=== PATIENT | male | born 1945 | race Caucasian/White ===

== ENCOUNTER 2021-05-30 10:30 | Emergency (ER) | payer MEDICARE, SELFPAY ==
[2021-05-30] VITALS (19 sets, daily range): BP systolic 177–204; BP diastolic 84–120; PULSE 56–73; RESP 9–26; TEMP 36.2; O2SAT 97–98; BMI 30.9
--- NOTE | 2021-05-30 10:58 | ED_ITS ---
HPI - General Adult General Chief complaint: Abdominal Pain Stated complaint: sharp pain rt lower abdomian, cold sweats and vomi Time Seen by Provider: 05/30/21 10:58 Source: patient and family Mode of arrival: Ambulatory Limitations: no limitations History of Present Illness HPI narrative: 76-year-old gentleman with history of hypertension, hyperlipidemia, coronary artery disease post CABG with paroxysmal atrial fibrillation currently on aspirin and post ablation comes in with abdominal pain in the right lower/mid quadrant that has been worse since this morning. He has current diagnosis of presumed epididymitis for which he is currently on Cipro. Describes no vomiting, diarrhea, headaches, chest pain, palpitations, dyspnea, orthopnea, rashes. Related Data Home Medications Medication Instructions Recorded Confirmed aspirin 81 mg tablet,delayed 81 mg PO DAILY 03/18/19 05/30/21 release (Adult Low Dose Aspirin) cholecalciferol (vitamin D3) 50 2,000 unit PO DAILY 03/18/19 05/30/21 mcg (2,000 unit) capsule clonidine HCl 0.1 mg tablet 0.1 mg PO BID 03/18/19 05/30/21 furosemide 40 mg tablet 40 mg PO QAM 03/18/19 05/30/21 isosorbide mononitrate 60 mg 60 mg PO DAILY 03/18/19 05/30/21 tablet,extended release 24 hr paricalcitol 1 mcg capsule 1 mcg PO 3XW 03/18/19 05/30/21 rosuvastatin 10 mg tablet 10 mg PO BEDTIME 03/18/19 05/30/21 ciprofloxacin HCl 500 mg tablet 500 mg PO BID 05/30/21 05/30/21 coenzyme Q10 200 mg capsule (Co 200 mg PO DAILY 05/30/21 05/30/21 Q-10) epinephrine 0.3 mg/0.3 mL 0.3 mg IM QDAY PRN 05/30/21 05/30/21 injection, auto-injector hydralazine 50 mg tablet 150 mg PO BID 05/30/21 05/30/21 Previous Rx's Medication Instructions Recorded metoprolol tartrate 25 mg tablet 25 mg PO BID #180 tab 01/08/17 Allergies Allergy/AdvReac Type Severity Reaction Status Date / Time atorvastatin [From LIPITOR] Allergy Mild FLU-LIKE Verified 05/30/21 10:57 SYMPTOMS NITRATE Allergy Severe ANAPHYLAXIS Uncoded 03/18/19 09:24 SHELLFISH Allergy Severe ANAPHYLAXIS Uncoded 03/18/19 09:24 Review of Systems Review of Systems Narrative: Remainder of complete review of systems is otherwise unremarkable except for chiqui t included in the HPI. 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 Able to give a complete and coherent history. Well-nourished well-developed HEENT: Moist mucous membranes, normal sclera with reactive pupils, Neck: No JVD, supple Respiratory: Lungs are clear to auscultation, no wheezing no rales no rhonchi. Full and symmetrical air movement Cardiac: Regular rate and rhythm no murmurs no bruits Abdomen: Soft, mild tenderness mid right abdomen without specific flank pain or specific right lower quadrant tenderness. Good bowel tones, Skin: Warm and dry, no rashes Neurologic: Grossly neurologically intact with no obvious asymmetries or abnormalities Extremities: No trauma, well perfused Psych: Cooperative, appropriate insight and affect Initial Vital Signs Initial Vital Signs: Vital Signs Temperature 97.1 F L 05/30/21 10:35 Pulse Rate 62 05/30/21 10:35 Respiratory Rate 18 05/30/21 10:35 Blood Pressure 182/104 H 05/30/21 10:35 Pulse Oximetry 97 05/30/21 10:35 Course Orders Ordered: ED Orders 05/30/21 10:50 Complete Blood Count AUTO DIFF Stat Comprehensive Metabolic Panel Stat Lipase Stat Partial Thromboplastin Time Stat Prothrombin Time INR Stat 05/30/21 10:58 EKG-12 Lead Stat 05/30/21 12:14 CT kidney ureter bladder (KUB) Stat Discontinued Medications Bisacodyl (Bisacodyl 10 Mg Supp) 10 mg KS NOW ONE Stop: 05/30/21 15:17 Clonidine HCl (Clonidine 0.1 Mg Tablet) 0.1 mg PO NOW ONE Stop: 05/30/21 15:17 Hydralazine HCl (Hydralazine 25 Mg Tablet) 150 mg PO NOW ONE Stop: 05/30/21 15:17 Vital Signs Vital signs: Vital Signs - 8 hr 05/30/21 10:35 05/30/21 11:04 05/30/21 11:15 Temperature 97.1 F L Pulse Rate 62 63 73 Respiratory Rate 18 17 23 Blood Pressure 182/104 H Pulse Oximetry 97 97 05/30/21 11:16 05/30/21 11:30 05/30/21 11:45 Temperature Pulse Rate 56 L 56 L 61 Respiratory Rate 18 21 Blood Pressure 184/93 H 182/84 H 177/109 H Pulse Oximetry 97 98 05/30/21 12:00 05/30/21 12:22 05/30/21 12:30 Temperature Pulse Rate 64 68 63 Respiratory Rate 19 Blood Pressure 182/104 H Pulse Oximetry 97 98 98 05/30/21 12:45 05/30/21 13:00 05/30/21 13:15 Temperature Pulse Rate 59 L 63 61 Respiratory Rate 26 H 9 L 13 Blood Pressure Pulse Oximetry 97 97 97 05/30/21 13:45 05/30/21 14:00 05/30/21 14:15 Temperature Pulse Rate 64 63 64 Respiratory Rate 17 23 Blood Pressure 204/120 H Pulse Oximetry 98 98 98 05/30/21 14:16 05/30/21 14:30 05/30/21 14:45 Temperature Pulse Rate 64 59 L 60 Respiratory Rate 13 Blood Pressure 204/120 H 185/117 H 195/100 H Pulse Oximetry 98 98 98 05/30/21 15:00 Temperature Pulse Rate 60 Respiratory Rate 13 Blood Pressure 186/117 H Pulse Oximetry 98 Medical Decision Making Lab Data Result diagrams: 05/30/21 10:50 05/30/21 10:50 Labs: Lab Results 05/30/21 05/30/21 05/30/21 Range/Units 10:50 10:50 10:50 WBC 7.4 (4.5-11.0) X10^3/uL RBC 5.00 (4.5-5.9) X10^6/uL Hgb 13.5 (13.5-17.5) g/dL Hct 41.4 (41-53) % MCV 82.8 (80-100) fL MCH 26.9 (26-34) PG MCHC 32.5 (30-36) % RDW 17.5 H (11.6-14.8) % Plt Count 172 (150-400) X10^3/uL Neut % (Auto) 75.9 H (50-75) % Lymph % (Auto) 11.0 L (25-40) % [place] % (Auto) 9.2 (3-14) % Eos % (Auto) 3.0 (2-4) % Baso % (Auto) 0.9 (0-2) % Neut # (Auto) 5600 (3333-1175) /uL Lymph # (Auto) 800 L (1203-8323) /uL [place] # (Auto) 700 (0-900) /uL Eos # (Auto) 200 (0-450) /uL Baso # (Auto) 100 (0-100) /uL PT 12.8 H (10.1-12.7) SECONDS INR 1.2 (0.9-1.3) APTT 32 (26.4-36.2) SECONDS Sodium 142 (137-145) mmol/L Potassium 3.4 (3.4-5.1) mmol/L Chloride 105 (98-107) mmol/L Carbon Dioxide 28 (22-32) mmol/L BUN 34 H (9-20) mg/dL Creatinine 2.18 H (0.66-1.25) mg/dL Estimated GFR 29.6 L (>60) mL/min BUN/Creatinine Ratio 15.6 (6-22) Glucose 97 (80-110) mg/dL Calcium 9.3 (8.4-10.2) mg/dL Total Bilirubin 0.6 (0.2-1.3) mg/dL AST 31 (17-59) IU/L ALT 17 (<50) IU/L Alkaline Phosphatase 70 (38-126) U/L Total Protein 7.6 (6.3-8.2) g/dL Albumin 4.1 (3.5-5.0) g/dL Globulin 3.5 (1.7-4.1) g/dL Albumin/Globulin Ratio 1.2 (1.0-2.8) Lipase 113 (23-300) U/L Urine Dip Bedside Urine Glucose Negative Bedside Urine Bilirubin - Negative Bedside Urine Ketone - Negative Urine Specific [place] 1.015 Bedside Urine Occult Blood - Negative Bedside Urine pH 6.0 Bedside Urine Protein - Negative Bedside Urine Urobilinogen - Negative Bedside Urine Nitrite - Negative Bedside Urine Leukocytes - Negative Esterase Point of care testing: Urine Dip Bedside Urine Glucose Negative Bedside Urine Bilirubin - Negative Bedside Urine Ketone - Negative Urine Specific [place] 1.015 Bedside Urine Occult Blood - Negative Bedside Urine pH 6.0 Bedside Urine Protein - Negative Bedside Urine Urobilinogen - Negative Bedside Urine Nitrite - Negative Bedside Urine Leukocytes - Negative Esterase Imaging Data CT scan - abdomen/pelvis: My Impression: FINDINGS:? Image quality:? Excellent.? ? Lung bases:? Unremarkable.? ? Heart:? Heart is enlarged.? No effusion. ? URINARY: Right Kidney: ? No stones or hydronephrosis.? Renal atrophy is present.? Exophytic simple cysts are present. Right Ureter:? No hydroureter.? ? Left Kidney: ? No stones or hydronephrosis.? Renal atrophy is present.? Simple exophytic renal cysts are present. Left Ureter:? No hydroureter.? ? Bladder:? Normal wall thickness. No stones. ? ? ? ABDOMEN: Liver:? Mild hepatic steatosis is present. Gallbladder:? Luminal stone is noted without wall thickening.? ? Biliary ducts:? Unremarkable.? ? Pancreas:? Unremarkable.? ? Spleen:? Unremarkable.? ? Adrenal Glands:? Unremarkable.? ? ? Stomach and Bowel:? Stomach, small bowel loops, and colon are unremarkable.? Colonic diverticula are present without associated inflammatory change.? Prominent stool is present within the rectum as well as sigmoid colon.? Appendix is unremarkable. Peritoneum:? No abnormal intraperitoneal fluid.? No free air.? ? Ventral Wall: ? No hernia.? Abdominal Nodes:? No enlarged retroperitoneal or mesenteric lymph nodes.? Vessels:? Aorta and inferior vena cava are normal in size.? ? PELVIS: Pelvic Organs:? Unremarkable. Pelvic Nodes: Unremarkable. Miscellaneous:? Fat containing bilateral inguinal hernias, left greater than right are noted. ? Bones:? Unremarkable. ? IMPRESSION:? ? 1. No calculi are identified within the kidneys, ureter or bladder. ? 2. Diverticulosis. ? 3. Prominent stool within the rectum and distal sigmoid colon.? No obstruction.? ? ? Dictated by: Saima Rai M.D. on 05/30/2021 at 12:28? ?? ECG Data Interpretation: Atrial fibrillation a rate of 55 No acute ischemic MDM Narrative Medical decision making narrative: 76-year-old gentleman presents with mid right abdominal pain abrupt onset this morning. Currently on Cipro for presumed epididymitis. Has a history of chronic kidney disease and blood pressure that is managed by his pairer odds that includes hydralazine 150 mg twice a day clonidine 0.1 mg twice a day furosemide and b.i.d. metoprolol. He took all of his medications this morning that blood pressures in the emergency department have continued to be significantly elevated with no end-stage symptomatology (chest pain, shortness of breath, palpitations, headache, stroke-like symptoms). He notes that the abdominal pain is such that with reassurance he could easily ignore it. Workup today suggests no acute infection, stable chronic kidney issues, no evidence of stroke or heart attack and CT scan does not show any obvious explanation for the mid right abdominal pain. He does have a moderate amount of stool on the left side but no obstructions, masses, kidney stones, urinary tract infection or other acute surgical abnormality. He is discharged home with reassurance at this time. He is given his evening dose of hydralazine and clonidine due to his asymptomatic blood pressure at time of discharge. Will have him take his usual metoprolol and isosorbide this evening. He is also given a duplex suppository to use once he gets home and has every intention of adding quite a bit of prunes to try to encourage more regular bowel movements. He is safe for home discharge Discharge Plan Departure Patient Disposition: Home Clinical Impression: Abdominal pain, Stage 4 chronic kidney disease, Hypertension Instructions: DI for Abdominal Pain-Adult Activity Restrictions/Additional Instructions: Thank you for coming in today I did not find a life-threatening explanation for the pain in your right side today. Specifically there is no sign of infection, appendicitis kidney infection kidney obstruction. There are no masses or tumors, your bladder is not overly distended and you do not have any type of bowel obstruction. You do have quite a bit of stool on the left side of your colon and I his sent you home with a suppository to use this evening to see if having a bowel movement helps alleviate the abdominal pain you are experiencing. Your blood pressure was significantly high in the emergency department without any signs of stroke or heart attack. I gave you your usual dose of evening clonidine and hydralazine a just prior to discharge from the emergency department. You do need to take all of your other nighttime medications. If you have worsening signs or symptoms please feel free to return to the ER I hope you feel better Prescriptions: No Action metoprolol tartrate 25 MG tablet 25 mg PO BID Qty: 180 1RF ciprofloxacin HCl 500 mg tablet 500 mg PO BID 0RF Label Comments: TAKE ONE(1) TABLET BY MOUTH TWO(2) TIMES DAILY FOR SEVEN(7) DAYS FOR INFECTION UNTIL ALL ARE TAKEN Rx Instructions: started end date 06/01 =(7 days) hydralazine 50 mg tablet 150 mg PO BID 0RF Label Comments: TAKE THREE(3) TABLETS BY MOUTH TWO(2) TIMES DAILY TO GIVE A DOSE OF 150MG TWICE DAILY DOSE CHANGE 02/24/21 NOTE THESE ARE 50MG TABS coenzyme Q10 [Co Q-10] 200 mg Capsule 200 mg PO DAILY 0RF epinephrine 0.3 MG/0.3 ML auto-injector 0.3 mg IM QDAY PRN (Reason: anaphalaxis) 0RF clonidine HCl 0.1 mg tablet 0.1 mg PO BID 0RF furosemide 40 mg tablet 40 mg PO QAM 0RF rosuvastatin 10 mg tablet 10 mg PO BEDTIME 0RF isosorbide mononitrate 60 mg tablet extended release 24 hr 60 mg PO DAILY 0RF paricalcitol 1 mcg capsule 1 mcg PO 3XW 0RF Rx Instructions: mon/wed/fri aspirin [Adult Low Dose Aspirin] 81 mg tablet,delayed release (DR/EC) 81 mg PO DAILY 0RF cholecalciferol (vitamin D3) 2,000 unit capsule 2,000 unit PO DAILY 0RF Referrals: Brian Moore MD [Primary Care Provider] -
[2021-05-30 11:11] LABS: Add Manual Diff / Slide Review NO; Basophils Absolute Auto 100 /uL (0-100); Basophils Percent Auto 0.9 % (0-2); Eosinophils Absolute Auto 200 /uL (0-450); Hematocrit 41.4 % (41-53); Hemoglobin 13.5 g/dL (13.5-17.5); Lymphocytes Absolute Auto 800 /uL (1100-4500); Mean Corpuscular HGB Conc 32.5 % (30-36); Mean Corpuscular Hemoglobin 26.9 PG (26-34); Mean Corpuscular Volume 82.8 fL (80-100); Monocytes Absolute Auto 700 /uL (0-900); Monocytes Percent Auto 9.2 % (3-14); Neutrophils Absolute Auto 5600 /uL (1500-7000); Neutrophils Percent Auto 75.9 % (50-75); Platelet Count 172 X10^3/uL (150-400); Red Cell Distribution Width 17.5 % (11.6-14.8); White Blood Cell Count 7.4 X10^3/uL (4.5-11.0)
[2021-05-30 11:13] LABS: INR 1.2 (0.9-1.3); Prothrombin Time 12.8 SECONDS (10.1-12.7)
[2021-05-30 11:16] LABS: PTT Partial Thromboplastin Tim 32 SECONDS (26.4-36.2)
[2021-05-30 11:18] LABS: Alanine Aminotransferase 17 IU/L (<50); Albumin 4.1 g/dL (3.5-5.0); Albumin Globulin Ratio 1.2 (1.0-2.8); Alkaline Phosphatase 70 U/L (38-126); Aspartate Aminotransferase 31 IU/L (17-59); BUN Creatinine Ratio 15.6 (6-22); Bilirubin Total 0.6 mg/dL (0.2-1.3); Blood Urea Nitrogen 34 mg/dL (9-20); Calcium 9.3 mg/dL (8.4-10.2); Carbon Dioxide 28 mmol/L (22-32); Chloride 105 mmol/L (98-107); Estimated Glomerular Filt Rate 29.6 mL/min (>60); Globulin 3.5 g/dL (1.7-4.1); Glucose 97 mg/dL (80-110); HEMOLYSIS < 15 (0-50); Lipase 113 U/L (23-300); Potassium 3.4 mmol/L (3.4-5.1); Sodium 142 mmol/L (137-145); Total Protein 7.6 g/dL (6.3-8.2)
--- NOTE | 2021-05-30 12:14 | DI.CT.S_ITS ---
PROCEDURE: CT KIDNEY URETER BLADDER (KUB) INDICATIONS: Right flank pain TECHNIQUE: Axial sections were acquired from the lung bases to the pubic symphysis. Coronal and sagittal reformats were performed. For radiation dose reduction, the following was used: automated exposure control, adjustment of mA and/or kV according to patient size. COMPARISON: None. FINDINGS: Image quality: Excellent. Lung bases: Unremarkable. Heart: Heart is enlarged. No effusion. URINARY: Right Kidney: No stones or hydronephrosis. Renal atrophy is present. Exophytic simple cysts are present. Right Ureter: No hydroureter. Left Kidney: No stones or hydronephrosis. Renal atrophy is present. Simple exophytic renal cysts are present. Left Ureter: No hydroureter. Bladder: Normal wall thickness. No stones. ABDOMEN: Liver: Mild hepatic steatosis is present. Gallbladder: Luminal stone is noted without wall thickening. Biliary ducts: Unremarkable. Pancreas: Unremarkable. Spleen: Unremarkable. Adrenal Glands: Unremarkable. Stomach and Bowel: Stomach, small bowel loops, and colon are unremarkable. Colonic diverticula are present without associated inflammatory change. Prominent stool is present within the rectum as well as sigmoid colon. Appendix is unremarkable. Peritoneum: No abnormal intraperitoneal fluid. No free air. Ventral Wall: No hernia. Abdominal Nodes: No enlarged retroperitoneal or mesenteric lymph nodes. Vessels: Aorta and inferior vena cava are normal in size. PELVIS: Pelvic Organs: Unremarkable. Pelvic Nodes: Unremarkable. Miscellaneous: Fat containing bilateral inguinal hernias, left greater than right are noted. Bones: Unremarkable. IMPRESSION: 1. No calculi are identified within the kidneys, ureter or bladder. 2. Diverticulosis. 3. Prominent stool within the rectum and distal sigmoid colon. No obstruction. Dictated by: Saima Rai M.D. on 05/30/2021 at 12:28 Approved by: Saima Rai M.D. on 05/30/2021 at 12:35
[2021-05-30] MEDS: BISACODYL 10 MG SUPP PR (15:23)
[2021-05-30] MEDS: cloNIDine 0.1 MG TABLET PO (15:23)
[2021-05-30] MEDS: HYDRALAZINE 25 MG TABLET 150 MG PO (15:28)
== END 2021-05-30 15:34 | disposition home or self-care (01) ==
PROVIDERS: Emergency Provider Emergency Medicine; Family Provider Family Medicine; PCP Family Medicine
DX: R10.31 Right lower quadrant pain (principal); I48.91 Unspecified atrial fibrillation; I12.9 Hypertensive chronic kidney disease with stage 1 through stage 4 chronic kidney disease, or unspecified chronic kidney disease; N18.4 Chronic kidney disease, stage 4 (severe); Z87.891 Personal history of nicotine dependence
CPT/HCPCS: 36415; 74176; 80053; 81003; 83690; 85025; 85610; 85730; 93005; 93010; 99284

== ENCOUNTER 2021-12-19 10:17 | Day surgery (SDC) | payer MEDICARE, SELFPAY ==
--- NOTE | 2021-12-19 | PATH_ITS ---
[facility] Accession Number: [id number] . 01 Material submitted: . colon - RIGHT COLON POLYPS . 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 MRV 12/22/2021 0828 Local . 01 Electronically signed: . Arielle Nair MD, Pathologist NPI- [id number] . 01 Gross description: . RIGHT COLON POLYPS: Received in formalin are 3 fragment(s) of paredes, soft tissue measuring 0.2 x 0.2 x 0.2 cm to 0.8 x 0.3 x 0.3 cm submitted entirely in 1 cassette(s) /MARCELINO 12/20/2021 1905 Local . 01 Pathologist provided ICD-10: D12.6 . 01 CPT . 484228 Specimen Comment: A courtesy copy of this report has been sent to [phone] Performed at: 01 [facility] [address] [place] [address] [address], [place], [place] [id number] MD Jairon Wise MD Phone: [phone]
[2021-12-19 10:57] VITALS: BP 163/104; PULSE 67; RESP 16; TEMP 36.1; O2SAT 97; BMI 29.3
--- NOTE | 2021-12-19 11:09 | PM.HP.1 ---
History of Present Illness History of Present Illness Date Patient Seen: 12/19/21 Time Patient Seen: 11:09 Chief complaint: SDC Narrative: I reviewed the recent clinic note from Elizabeth Villalobos. Patient has been experiencing intermittent abdominal pains and troubles with constipation. Better lately with fiber supplementation approach. CT imaging has suggested fecal loading in the rectum and sigmoid. 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 Mixed hyperlipidemia (09/23/15) Obstructive sleep apnea, adult Stage 4 chronic kidney disease (02/12/15) Surgical History History of coronary artery bypass surgery (09/23/15) Family & Social History Tobacco & Substance use: Smoking Status Former smoker alcohol intake frequency 0-2 drinks per day Substance Use Type does not use Meds Home Medications and Allergies Home Medications Medication Instructions Recorded Confirmed Type metoprolol tartrate 25 mg tablet 25 mg PO BID #180 tabs 01/08/17 05/30/21 Rx aspirin 81 mg tablet,delayed 81 mg PO DAILY 03/18/19 05/30/21 History release (Adult Low Dose Aspirin) cholecalciferol (vitamin D3) 50 2,000 unit PO DAILY 03/18/19 05/30/21 History mcg (2,000 unit) capsule clonidine HCl 0.1 mg tablet 0.1 mg PO BID 03/18/19 05/30/21 History furosemide 40 mg tablet 40 mg PO QAM 03/18/19 05/30/21 History isosorbide mononitrate 60 mg 60 mg PO DAILY 03/18/19 05/30/21 History tablet,extended release 24 hr paricalcitol 1 mcg capsule 1 mcg PO 3XW 03/18/19 05/30/21 History rosuvastatin 10 mg tablet 10 mg PO BEDTIME 03/18/19 05/30/21 History ciprofloxacin HCl 500 mg tablet 500 mg PO BID 05/30/21 05/30/21 History coenzyme Q10 200 mg capsule (Co 200 mg PO DAILY 05/30/21 05/30/21 History Q-10) epinephrine 0.3 mg/0.3 mL 0.3 mg IM QDAY PRN anaphalaxis 05/30/21 05/30/21 History injection, auto-injector hydralazine 50 mg tablet 150 mg PO BID 05/30/21 05/30/21 History clonidine HCl 0.1 mg tablet mg 12/19/21 History hydralazine 50 mg tablet mg 12/19/21 History rosuvastatin 20 mg tablet tab 12/19/21 History Allergies Allergy/AdvReac Type Severity Reaction Status Date / Time atorvastatin [From LIPITOR] Allergy Mild FLU-LIKE Verified 12/19/21 10:53 SYMPTOMS NITRATE Allergy Severe ANAPHYLAXIS Uncoded 12/19/21 10:53 SHELLFISH Allergy Severe ANAPHYLAXIS Uncoded 12/19/21 10:53 Review of Systems Review of Systems ROS: Yes All systems reviewed with the patient and are negative except as otherwise documented Exam Const General: cooperative HENMT Head: normal to inspection Eyes General: appearance normal, both eyes and all related structures Neck Neck: normal visual inspection Chest Chest: normal inspection of the chest Resp Effort & Inspection: normal respiratory effort Cardio Rate: regular rate GI Inspection: normal to inspection Skin General: no rashes or lesions noted Neuro General: patient alert and patient awake Extrem General: normal to inspection and no pedal edema Psych Appearance: grossly normal Assessment & Plan Assessment & Plan narrative: 76-year-old male with intermittent abdominal pain found to have fecal loading at CT imaging. Colonoscopic interrogation is pursued today. Time Spent With Patient Critical Care time: I spent a total of [] minutes of critical care time on this patient's care today; this time is exclusive of procedural time.
--- NOTE | 2021-12-19 11:11 | PM.PREOP ---
Pre-operative Note COVID-19 COVID-19 status: Negative Result date/Date tested (Pos, Neg/Pending): 12/19/21 Criteria for continued procedure: Possibility delay results in more complex future surgery or treatment Interval Note History & Physical reviewed/Exam performed by Physician: Yes Changes to H&P: No ASA Class (for procedural sedation): III
[2021-12-19 11:16] VITALS: BP 154/101
[2021-12-19 11:22] LABS: COVID19 -Nasal RAPID Negative (Negative)
[2021-12-19 11:27] VITALS: BMI 29.3
[2021-12-19] MEDS: SODIUM CHLORIDE 0.9% 1,000 ML 84 ML IV (11:33)
--- NOTE | 2021-12-19 12:16 | P.OP.COLON_ITS ---
Operative Date/Time/Diagnoses Date of procedure: 12/19/21 Time of procedure: 12:16 Pre-op diagnosis: Abdominal pain constipation Post-op diagnosis: same Procedure & Clinicians Study performed: Colonoscopy with hot snare polypectomy and cold forceps polypectomy Same procedure as scheduled: Yes Indications: Abdominal pain constipation Surgeon: Benedict Ruiz Procedure Notes SCOAP/Timeout: Done Procedure in detail: After the risks and benefits were explained, written and verbal informed consent was obtained. The patient was brought into the procedure room and placed into the left lateral decubitus position. Please see nurse heavy repairer notes for sedation details. Digital rectal examination was accomplished. The scope was introduced into the patient and advanced under direct visualization to the cecum as identified by the appendiceal orifice and ileocecal valve. The scope was slowly withdrawn to carefully examine the mucosa for any defects or lesions. Comprehensive imaging was accomplished throughout the rectum including the dentate line. The colon was decompressed, the scope was then removed from the patient who tolerated the procedure well. Bowel prep adequate Adult colonoscope Scope withdrawal time: 12 minutes Sedation minutes: 20 Complications: none Impression: The patient had extensive diverticulosis starting in the sigmoid colon extending all the way into ascending colon. No mass lesions were appreciated no evidence of inflammation throughout the colon. Moderate grade 2 internal hemorrhoids were noted. In the cecum there was a 5-6 mm sessile polyp removed with hot snare. In the ascending colon there were 2 diminutive polyps removed with cold forceps. All of these were submitted together as ?right colon polyps?. No additional significant pathology was appreciated throughout. Endoscopic diagnosis 1. Diverticulosis 2. Colon polyps 3. Grade 2 hemorrhoids Post-procedure Plan for aftercare: 1. Await histopathology 2. Consider repeat colonoscopy 3 years. 3. Fiber based bowel regimen for soft regular evacuations. Disposition: PACU
[2021-12-19 12:18] VITALS: BP 131/88; PULSE 75; RESP 25; TEMP 36.7; O2SAT 96
[2021-12-19 12:23] VITALS: BP 146/102; PULSE 70; RESP 18; TEMP 36.4; O2SAT 94
[2021-12-19 12:28] VITALS: BP 166/116; PULSE 68; RESP 17; TEMP 36.1; O2SAT 95
[2021-12-19 12:34] VITALS: BP 159/107; PULSE 71; RESP 18; TEMP 36.1; O2SAT 95
== END 2021-12-19 13:01 | disposition home or self-care (01) ==
PROVIDERS: Family Provider Family Medicine; PCP Family Medicine; Referring Provider Internal Medicine Gastroenterology; Visit Provider Internal Medicine Gastroenterology
PROC: 0DJD8ZZ Inspection of Lower Intestinal Tract, Via Natural or Artificial Opening Endoscopic (ICD-10-PCS; CPT 45378; principal; 2021-12-19 11:30)
DX: R10.9 Unspecified abdominal pain (principal); K59.00 Constipation, unspecified; K57.30 Diverticulosis of large intestine without perforation or abscess without bleeding; K64.1 Second degree hemorrhoids; D12.6 Benign neoplasm of colon, unspecified
CPT/HCPCS: 45385; 45380; 87635; J2704

== ENCOUNTER → 2022-04-27 14:27 | Outpatient (CLI) | payer MEDICARE, SELFPAY ==
[2022-04-27 15:04] LABS: Add Manual Diff / Slide Review NO; Basophils Absolute Auto 100 /uL (0-100); Basophils Percent Auto 1.2 % (0-2); Eosinophils Absolute Auto 400 /uL (0-450); Eosinophils Percent Auto 5.4 % (2-4); Hematocrit 40.1 % (41-53); Hemoglobin 12.9 g/dL (13.5-17.5); Lymphocytes Absolute Auto 1000 /uL (1100-4500); Lymphocytes Percent Auto 14.9 % (25-40); Mean Corpuscular HGB Conc 32.3 % (30-36); Mean Corpuscular Hemoglobin 27.7 PG (26-34); Mean Corpuscular Volume 85.8 fL (80-100); Monocytes Absolute Auto 800 /uL (0-900); Monocytes Percent Auto 11.7 % (3-14); Neutrophils Absolute Auto 4400 /uL (1500-7000); Neutrophils Percent Auto 66.8 % (50-75); Platelet Count 193 X10^3/uL (150-400); Red Blood Cell Count 4.67 X10^6/uL (4.5-5.9); Red Cell Distribution Width 16.3 % (11.6-14.8); White Blood Cell Count 6.6 X10^3/uL (4.5-11.0)
[2022-04-27 15:26] LABS: BUN Creatinine Ratio 14.5 (6-22); Blood Urea Nitrogen 37 mg/dL (9-20); Carbon Dioxide 27 mmol/L (22-32); Chloride 105 mmol/L (98-107); Estimated Glomerular Filt Rate 25 mL/min (>60); Glucose 106 mg/dL (80-110); HEMOLYSIS < 15 (0-50); Potassium 3.7 mmol/L (3.4-5.1); Sodium 142 mmol/L (137-145)
== END ==
PROVIDERS: Family Provider Family Medicine; PCP Family Medicine; Referring Provider Orthopaedic Surgery; Visit Provider Orthopaedic Surgery
DX: Z01.818 Encounter for other preprocedural examination (principal); M25.562 Pain in left knee; Z01.812 Encounter for preprocedural laboratory examination
CPT/HCPCS: 36415; 80048; 85025; 93005

== ENCOUNTER 2022-05-18 13:02 | Observation (INO) | payer MEDICARE, SELFPAY ==
[2022-05-09 07:52] VITALS: BMI 30.6
[2022-05-17] VITALS (14 sets, daily range): BP systolic 138–182; BP diastolic 81–111; PULSE 58–85; RESP 14–20; TEMP 35.7–36.6; O2SAT 88–98; BMI 30.6; BMI 32.3
[2022-05-17] MEDS: LACTATED RINGERS 1,000 ML 42 ML IV ×2 (09:01→11:48)
--- NOTE | 2022-05-17 09:47 | PM.PREOP ---
Pre-operative Note COVID-19 COVID-19 status: Negative Result date/Date tested (Pos, Neg/Pending): 05/15/22 Interval Note History & Physical reviewed/Exam performed by Physician: Yes Changes to H&P: No
--- NOTE | 2022-05-17 10:01 | DI.RAD.S_ITS ---
PROCEDURE: XR KNEE RT 1TO2V INDICATIONS: post op total knee TECHNIQUE: 2 view(s) of the knee acquired. COMPARISON: [facility], CR, XR KNEE 4+ VIEWS RIGHT, 02/20/2022, 15:03. FINDINGS: Bones: Patient is status post knee joint arthroplasty. Hardware components are in expected positions. Visualized bony structures are intact. Soft tissues: Overlying postoperative changes are noted. IMPRESSION: Expected appearance of the right knee arthroplasty. Dictated by: wKame Ogden M.D. on 05/17/2022 at 13:54 Approved by: Kwame Ogden M.D. on 05/17/2022 at 13:54
[2022-05-17] MEDS: CELECOXIB 200 MG CAPSULE PO (10:08)
[2022-05-17] MEDS: PREGABALIN 75 MG CAPSULE PO (10:08)
[2022-05-17] MEDS: ACETAMINOPHEN 325 MG TABLET 975 MG PO (10:08)
[2022-05-17] MEDS: CEFAZOLIN 2 GM/100 ML PREMIX 100 ML IV ×2 (10:30→19:02)
[2022-05-17] MEDS: TRANEXAMIC ACID 1,000 MG VIAL 2000 MG INJ ×2 (10:45→12:00)
--- NOTE | 2022-05-17 11:16 | SUR.OPER ---
Supine on padded OR bed. Pillow under head, arms secured on padded armboards <90 degree abduction. Safety belt across torso. Non-operative leg secured with tape over blanket over lower leg. Operative leg secured in DeMayo/Vimal/Nathe positioner. Foam padded brace at thigh of operative leg.
[2022-05-17] MEDS: BUPIVACAINE 0.25% (PF) 60 ML, EPINEPHrine 0.3 MG INJ (11:45)
[2022-05-17] MEDS: BUPIVACAINE LIPOSOME 266 MG/20 ML VIAL INJ (11:46)
[2022-05-17] MEDS: MORPHINE 4 MG/ML INJ INJ (11:47)
--- NOTE | 2022-05-17 12:24 | PM.OP.1 ---
Operative Date/Time/Diagnoses Date of procedure: 05/17/22 Time of procedure: 12:24 Pre-op diagnosis: Right knee osteoarthritis Post-op diagnosis: same Procedure & Clinicians Procedure: Right total knee replacement Same procedure as scheduled: Yes Indications: The patient has had progressively worsening right knee pain with radiographic changes consistent with arthritis. Non-operative management has failed and the patient has requested total knee replacement. The risks, benefits and alternatives to surgery were discussed with the patient prior to proceeding. Risks discussed included, but were not limited to, failure to relieve pain, stiffness, infection, nerve damage, deep venous thrombosis, pulmonary embolism, stroke, coma, heart attack, permanent paralysis and , as well as the potential need for eventual revision of the prosthetic. Surgeon: Alhaji Farfan [employer] Whe[employer] Driver: Amelie Frost Click Yes if Unassisted: No Anesthesia Type: General, Spinal and Local Operative Notes Findings: Severe lateral compartment osteoarthritis with moderate patellofemoral arthritic change. Relative preservation of the medial compartment but significant degenerative medial meniscus tear. Closure Type: primary Specimen(s): none sent Prosthetic devices, grafts, tissues, transplants, or devices: Implants used in this procedure were manufactured by the [employer] and included the BCS II Journey total knee replacement with a size 7 right cobalt chromium femur, size 7 right non porous tibial base plate, a size 9 mm cross-linked polyethylene tibial insert and a 38 mm oval Lisset II patella. Applied: implant(s) Estimated Blood Loss (mL): 25 Blood products transfused: none Tourniquet time (min): 58 Procedure in detail: The patient was seen in the pre-operative area, where the patient identified the right knee as the operative site and this was marked with my initials. The patient received pre-operative antibiotics, and was taken to the operating room and placed on the operative table in the supine position. After satisfactory anesthesia, a aircraft time clerk out was performed. The right leg was encircled with a tourniquet about the proximal thigh, and the leg was prepared from the toes to the tourniquet with ChloroPrep in the usual fashion and draped through sterile drapes. The leg was elevated and exsanguinated with Eschmark bandage and the tourniquet inflated to 250 mmHg pressure. The knee was approached through an approximately 18 cm incision centered over the patella and carried into the knee through a medial parapatellar arthrotomy. The anterior osteophytes and soft tissues were removed. The rotational landmarks of Tyrel's line and the transepicondylar axis were marked on the femur with electrocautery, and intramedullary guide holes for the femur and tibia were created. The distal femoral cut was made in 6 degrees of valgus using the intramedullary guide at the primary cut setting. The proximal tibial cut was then made using the intramedullary guide, taking 9 mm of bone off the less involved side. The extension gap was checked and the rotation of the femoral component confirmed with the gap balancing system. The anterior, posterior and chamfer cuts were then made. The posterior osteophytes and soft tissues were then removed. The posterior capsule was injected with part of a mixture of 60 ml 0.25% Marcaine mixed with 20 ml Exparel and 4 mg of morphine for post-operative pain control. The remainder of this mixture was injected into the capsule and subcutaneous tissues during cement curing. The tibia was prepared with the rotation set by an extra medullary guide. Trial tibial and femoral components were then placed and the intercondylar notch cut through the femoral trial. Range of motion was 0-140 degrees, with good stability throughout the range. The patella was then cut to accommodate the patellar prosthetic. There was no need for a lateral release. The trials were then removed, and the femoral hole plugged with a bone plug. The bone was prepared with pulsatile lavage, and dried with a sponge. Cement was applied and the final prosthetics placed. Excess cement was removed during and after cement curing. After confirming there was no extruded cement posteriorly, the final tibial insert was placed. The knee was copiously irrigated and the tourniquet deflated. Hemostasis was obtained. The capsule was closed with interrupted # 2 polyester suture. The subcutaneous layer was closed with 3-0 Vicryl, and the skin with a running 3-0 V-Lock suture and Dermabond. An Aquacel Ag dressing was applied and the patient was taken to recovery having tolerated the procedure well. The services of Ms. Forst were required as a skilled assistant account executive to provide exposure, positioning and retraction to protect vital structures. Without the services of a skilled assistant account executive the surgery could not have been performed safely or expediently. Complications: none Post-operative Condition: stable Disposition: PACU Plan for aftercare: The patient will be maintained on a standard total knee replacement protocol with weight bearing as tolerated. The patient will receive aspirin and sequential compression devices for DVT prophylaxis. The patient will be discharged home when safe for the home environment.
[2022-05-17] MEDS: LACTATED RINGERS 1,000 ML 100 ML IV (14:20)
[2022-05-17] MEDS: ISOSORBIDE MONONITRATE ER 30 MG TABLET 60 MG PO (16:21)
--- NOTE | 2022-05-17 16:35 | PT.IIE ---
Current Diagnoses Unilateral primary osteoarthritis, right knee (05/17/22) Surgery Performed Operation Date: 05/17/22 10:00 Actual Procedures p Total Knee Arthroplasty(Right) - Alhaji Farfan MD Surgical History (Last Updated 05/09/22 @ 07:32 by Millie Joy, RN) H/O cardiac radiofrequency ablation (2018) History of coronary artery bypass surgery (09/22/13) Hx of bilateral cataract extraction Hx of heart artery stent Hx of hernia repair Hx of tonsillectomy Medical History (Last Updated 05/09/22 @ 07:32 by Millie Joy RN) Anesthesia Coronary artery disease involving [place] coronary artery of [place] heart without angina pectoris (09/23/15) Erectile dysfunction due to arterial insufficiency (11/08/16) Essential hypertension with goal blood pressure less than 130/80 (09/23/15) Gastroesophageal reflux disease without esophagitis (09/23/15) Hyperparathyroidism (11/08/16) Idiopathic chronic gout of right foot without tophus (09/23/15) 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 Mixed hyperlipidemia (09/23/15) Obstructive sleep apnea, adult Stage 4 chronic kidney disease (02/12/15) Physical Therapy Inpatient Evaluation/Re-Eval M1 PT/OT-IP Prior Functional Status Start: 05/17/22 17:52 Freq: NEEDED Status: Active Protocol: Document 05/17/22 16:35 AB (Rec: 05/17/22 18:03 AB [email or web address]) Medical Review Prior Functional Status Medical History Reviewed Yes Communication able to make needs known Mobility and Gait pt stated that he is modified independent with all mobilities without AD indoors but uses a SPC for outdoor mobility and when doing stairs Social History Household Members spouse Living Arrangements House Number of Floors (Floors) One Floor Number of Stairs To Enter/Railing? 2 step with L rail ascending to enter Home Environment Standard Height Toilet,Walk in Shower Home Equipment Front Wheel Walker,Four Wheel Walker,Straight Cane,Shower Seat with Backrest,Hand Held Shower,Grab Bars Near Toilet, Grab Bars In Shower M2 PT-IP Current Condition Start: 05/17/22 17:52 Freq: NEEDED Status: Active Protocol: Document 05/17/22 16:35 AB (Rec: 05/17/22 18:03 AB [email or web address]) Physical Therapy Current Condition Current Condition Evaluation Date 05/17/22 Treatment Diagnosis s/p R TKA; difficulty in walking Onset Date 05/17/22 M3 PT-IP Subjective Start: 05/17/22 17:52 Freq: NEEDED Status: Active Protocol: Document 05/17/22 16:35 AB (Rec: 05/17/22 18:03 AB [email or web address]) Subjective Physical Therapy Visit Type Type Initial Evaluation Visit Start Time 16:35 Visit Stop Time 17:15 Total Visit Minutes 40 Number of RECYCLING DIRECTOR Visits 0 Physical Therapy Visit Comments Patient Comments agreeable to do PT Therapy Pain Assessment Pain When Pain Assessed At Rest Pain Present Pain Present Pain Reported Location Right Knee Intensity 2 Scale Used increases to 5-6/10 with mobility Pain Management Techniques Apply Cold,Distraction, Modification of Treatment,Re- positioning,Timing of Activity with Medications M4 PT-IP Mobility and Gait Start: 05/17/22 17:52 Freq: NEEDED Status: Active Protocol: Document 05/17/22 16:35 AB (Rec: 05/17/22 18:03 AB [email or web address]) PT-Bed Mobility Assessment Supine to Sit Supine to Sit Standby Assistance Sit to Supine Sit to Supine Standby Assistance PT-Transfer Assessment Sit to and From Stand Sit to and from Stand Minimal Assistance,1 Person Assistance,Use of Upper Extremities Equipment Transfer Assistive Device Gait Belt,Front Wheeled Walker Orthotic/Prosthetic Devices or Brace: No Comments Mobility Comments BP ins upine: 176/109. Nurse just gave pt BP medication. Pt wanting to move. completed supine to sit SBA. No c/o of dizziness/nausea. BP in sittin/121. Mobility limited due to increase BP. pt completed sit to stand from EOB min A and took side steps to HOB using FWW min A for positioning. Pt sat back on EOB and completed sit to supine SBA. positioned pt in bed. call light and table placed within reach. BP checked again. 196/128. Nurse is aware and gave pt pain meds. Gait Assessment Comments Gait Comments side stepping to HOB for positioning PT-Balance Assessment Sitting Balance and Reactions Static Sitting Balance Ability Normal Dynamic Sitting Balance Ability Good Standing Balance and Reactions Static Standing Balance Ability Fair Dynamic Standing Balance Ability Fair Device Used FWW M5 PT-IP Objective Assessments Start: 05/17/22 17:52 Freq: NEEDED Status: Active Protocol: Document 05/17/22 16:35 AB (Rec: 05/17/22 18:03 AB [email or web address]) Orientation Orientation/Cognition Level of Alertness Alert Orientation Name,Place,Situation Language Function Ability No Deficits Noted Safety Awareness Understands Safety Issues Memory Description No Deficits Noted Gross Range of Motion Lower Extremity ROM Impairments R knee flexion: ~70 deg Strength Lower Extremity Strength Assessment Right Impaired Hip 4/5 Knee 4-/5 Sensation Assessment Sensation Gross Sensation WNL Muscle Tone Muscle Tone WNL Yes M6 PT-IP Treatment Start: 05/17/22 17:52 Freq: NEEDED Status: Active Protocol: Document 05/17/22 16:35 AB (Rec: 05/17/22 18:03 AB [email or web address]) Physical Therapy Treatment Education Education Provided Precautions,Weight Bearing Status,Post-Op Packet,Safety M7 PT-IP Assessment and Plan Start: 05/17/22 17:52 Freq: NEEDED Status: Active Protocol: Document 05/17/22 16:35 AB (Rec: 05/17/22 18:03 AB [email or web address]) PT Summary Assessment and Plan Potential Rehabilitation Potential Fair Status of Condition at Evaluation Evolving Summary Impairments Pain,ROM,Strength,Balance, Coordination,Sensation,Tone, Cognition,Bed Mobility, Transfers,Gait,Activity Tolerance Assessment Summary pt s/p R TKA and just had surgery today. Pt's mobility limited due to increase BP but able to stand with min A using fWW. will continue to assess progress and when appropriate, will conduct caregiver training and stair climbing training. Goals Bed Mobility Goal Standby Assistance Transfer Goal Standby Assistance,Front Wheeled Walker Gait Goal Standby Assistance,Front Wheel Walker Gait Distance 150 Other Goals up/down 2 steps L rail + SPC SBA Days to Meet Goals 5 Frequency of Treatment Frequency Of Treatment Twice a Day Treatment Plan Physical Therapy Treatment Plan Bed Mobility Training,Transfer Training,Gait Training, Therapeutic Exercise,Balance Retraining,Post Op Education, Discharge Planning,Hot or Cold Pack,Neuromuscular Re-ed, Coordination Retraining,Manual Therapy Weight Bearing Status Weight Bearing Status Weight Bear as Tolerated Allowed Weight Bearing Amount (enter % RLE WBAT or #) (%) Recommendations To Nursing Amount of Assist Needed 1 Person Assist Discharge Recommendations PT Discharge Recommendations Home with Assistance, Outpatient PT Transportation Needs at Discharge Private Vehicle
[2022-05-17] MEDS: OXYCODONE IR 10 MG TABLET PO ×2 (17:03→20:18)
--- NOTE | 2022-05-17 18:11 | PC.NURSE ---
notified Dr. Tavarez patient's BP elevated. ok to give all BP meds early.
[2022-05-17] MEDS: HYDRALAZINE 25 MG TABLET 150 MG PO (18:52)
[2022-05-17] MEDS: cloNIDine 0.1 MG TABLET PO (18:52)
[2022-05-17] MEDS: METOPROLOL IR 25 MG TABLET PO (18:53)
[2022-05-17] MEDS: ACETAMINOPHEN 325 MG TABLET 650 MG PO (18:59)
[2022-05-17] MEDS: DOCUSATE 100 MG CAPSULE PO (20:15)
[2022-05-17] MEDS: ATORVASTATIN 20 MG TABLET PO (20:15)
[2022-05-17] MEDS: APIXABAN 5 MG TABLET PO (20:15)
[2022-05-18] VITALS (8 sets, daily range): BP systolic 132–170; BP diastolic 68–108; PULSE 59–74; RESP 18–20; TEMP 36.2–36.6; O2SAT 97–98
[2022-05-18] MEDS: ACETAMINOPHEN 325 MG TABLET 650 MG PO ×3 (00:49→10:31)
[2022-05-18] MEDS: LACTATED RINGERS 1,000 ML 100 ML IV (02:06)
[2022-05-18] MEDS: CEFAZOLIN 2 GM/100 ML PREMIX 100 ML IV (02:07)
[2022-05-18 06:58] LABS: Hematocrit 33.2 % (41-53)
--- NOTE | 2022-05-18 08:53 | PM.DS.1 ---
History of Present Illness History of Present Illness Date Patient Seen: 05/18/22 Time Patient Seen: 08:53 Chief complaint: OPB Narrative: The history and physical is contained in the chart previously completed note. Please refer to that note for this information. Discharge Providers Provider Date of admission: May 17, 2022 Discharge Date: 05/18/22 Primary care physician: Michelle Evans MD Consults: 05/17/22 13:20 Consult to Discharge Planning Routine Comment: Consult to Physical Therapy Evaluate & Treat Comment: Physician Instructions: postop TKA protocol Discharge provider: Alhaji Farfan MD Summary Hospital Course Discharge Diagnosis: 1. Right knee osteoarthritis 2. Post hemorrhagic anemia Hospital Course: The patient was admitted to the hospital and taken directly to the operating room on May 17, 2022. Underwent a right total knee replacement without complications. He had a mild post hemorrhagic anemia as expected on postoperative day 1. At this time he is stable and it is felt he will be ready for discharge later today. Status at Discharge Cognitive/behavioral status at discharge: at baseline, oriented Functional status at discharge: uses cane/walker Overall status at discharge: patient is progressing back to baseline Time Spent with Patient Time spent: Less than 30 minutes Exam Vital Signs (past 8 hours): - 05/18/22 03:21 05/18/22 03:23 05/18/22 08:29 Temperature 97.1 F L 97.5 F L Pulse Rate 74 59 L Respiratory Rate 18 20 Blood Pressure 155/95 H 146/104 H 135/82 Pulse Oximetry 97 97 Oxygen Flow Rate 0 Oxygen Delivery Method Room Air Oxygen Flow Rate 0 Narrative Exam Narrative: Right knee wound is dressed with no drainage on the bandage. Calf is soft. Light touch and motion are intact in the right lower extremity. Objective Labs Result Diagrams: 05/18/22 06:42 Labs: Laboratory Results - last 24 hr 05/18/22 06:42 Hgb 11.0 L Hct 33.2 L [facility] Medical History (Updated 05/09/22 @ 07:32 by Millie Joy RN) Anesthesia Coronary artery disease involving [place] coronary artery of 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 Mixed hyperlipidemia (09/23/15) Obstructive sleep apnea, adult Stage 4 chronic kidney disease (02/12/15) Surgical History (Updated 05/09/22 @ 07:32 by Millie Joy RN) H/O cardiac radiofrequency ablation (2018) History of coronary artery bypass surgery (09/22/13) Hx of bilateral cataract extraction Hx of heart artery stent Hx of hernia repair Hx of tonsillectomy Social History household members: spouse Smoking Status: Former smoker alcohol intake: former Discharge Assessment & Plan Assessment and Plan Assessment: Stable postoperative day 1 status post right total knee replacement with mild post hemorrhagic anemia that should resolve spontaneously. Plan of Treatment: Discharge today with follow-up in my office in 10-14 days. Prescriptions for oxycodone will be called in to [facility]. He has been instructed in the use of Tylenol for additional pain relief. He will be taking his Eliquis and aspirin which will function as DVT prophylaxis. Discharge Plan Discharge Plan Patient Disposition: Home Discharge orders & Medications Discharge Orders: Discharge (Order); Ordered 05/18/22 Ordered By: Alhaji Farfan Prescriptions: New acetaminophen 325 mg Tablet 650 mg PO Q6HR Qty: 250 0RF oxycodone 5 mg Tablet 5 mg PO Q4H PRN (Reason: Pain, Moderate (4-6)) Qty: 40 0RF Continued metoprolol tartrate 25 MG tablet 25 mg PO BID Qty: 180 1RF allopurinol 100 mg Tablet 100 mg PO DAILY apixaban 5 mg Tablet 5 mg PO BID coenzyme Q10 [Co Q-10] 200 mg Capsule 300 mg PO BEDTIME epinephrine 0.3 MG/0.3 ML auto-injector 0.3 mg IM QDAY PRN (Reason: anaphalaxis) hydralazine 50 mg tablet 150 mg PO BID Label Comments: TAKE THREE(3) TABLETS BY MOUTH TWO(2) TIMES DAILY TO GIVE A DOSE OF 150MG TWICE DAILY DOSE CHANGE 02/24/21 NOTE THESE ARE 50MG TABS clonidine HCl 0.1 mg tablet 0.1 mg PO BID furosemide 40 mg tablet 40 mg PO QAM rosuvastatin 10 mg tablet 10 mg PO BEDTIME isosorbide mononitrate 60 mg tablet extended release 24 hr 60 mg PO QPM paricalcitol 1 mcg capsule 1 mcg PO 3XW Rx Instructions: mon/wed/fri aspirin [Adult Low Dose Aspirin] 81 mg tablet,delayed release (DR/EC) 81 mg PO DAILY cholecalciferol (vitamin D3) 2,000 unit capsule 2,000 unit PO DAILY Discontinued acetaminophen 500 mg Tablet 500 mg PO Q6H PRN (Reason: Pain) Follow up/Referrals: Michelle Evans MD [Primary Care Provider] - Alhaji Farfan MD [Physician] - As previously scheduled Diet/Activity/Treatments Diet: Diet as Tolerated and Regular Activity: You may bear weight as tolerated on your right leg. Cold/Heat Therapy: You may apply ice to the right knee for 15 minutes every hour as needed for pain control. Skin/Wound/Dressing Care Report to your healthcare provider any signs of infection, such as:: chills, fever, night sweats, increased pain, unusual drainage and unusual redness Dressing: You may remove the Edward wrap 3 days after surgery and shower normally. Leave the deeper dressing in place until your follow-up. If the central strip of the dressing becomes saturated with either water or blood, please call the office to have it evaluated. Visit Report/Discharge Packet Instructions: DI for Knee Replacement Stand Alone Forms: Surgery Discharge Discharge Data Primary Care Provider: Michelle Evans Attending Provider: Alhaji Farfan Quality VTE Deep Vein Thrombosis/Pulmonary Embolism Present on Admission: No
[2022-05-18] MEDS: ASPIRIN EC 81 MG TABLET PO (09:56)
[2022-05-18] MEDS: CHOLECALCIFEROL (VITAMIN D3) 1,000 UNIT TABLET 2000 UNIT PO (09:56)
[2022-05-18] MEDS: HYDRALAZINE 25 MG TABLET 150 MG PO (09:57)
[2022-05-18] MEDS: APIXABAN 5 MG TABLET PO (09:57)
[2022-05-18] MEDS: allopurinoL 100 MG TABLET PO (09:57)
[2022-05-18] MEDS: METOPROLOL IR 25 MG TABLET PO (09:58)
[2022-05-18] MEDS: DOCUSATE 100 MG CAPSULE PO (09:59)
[2022-05-18] MEDS: cloNIDine 0.1 MG TABLET PO (09:59)
[2022-05-18] MEDS: FUROSEMIDE 40 MG TABLET PO (10:00)
--- NOTE | 2022-05-18 11:09 | PT.IPTN ---
Current Diagnoses Unilateral primary osteoarthritis, right knee (05/17/22) Surgery Performed Operation Date: 05/17/22 10:00 Actual Procedures p Total Knee Arthroplasty(Right) - Alhaji Farfan MD Physical Therapy Treatment Note M2 PT-IP Current Condition Start: 05/17/22 17:52 Freq: NEEDED Status: Discharge Protocol: Document 05/18/22 10:20 SP (Rec: 05/18/22 18:40 SP [id number]) Physical Therapy Current Condition Current Condition Evaluation Date 05/17/22 Treatment Diagnosis s/p R TKA; difficulty in walking Onset Date 05/17/22 M3 PT-IP Subjective Start: 05/17/22 17:52 Freq: NEEDED Status: Discharge Protocol: Document 05/18/22 10:20 SP (Rec: 05/18/22 18:40 SP [id number]) Subjective Physical Therapy Visit Type Type Treatment Note Visit Start Time 10:20 Visit Stop Time 11:09 Total Visit Minutes 49 Notes in room when arrived. Vitals taken: supine: BP 155/90 HR 102 SaO2 97% on RA seated EOB: 188/118 HR 129 Seated EOB 2 min: 183/126 HR 133 Post Transfer to chair: 178/ 117 HR 137 IT SENIOR SOFTWARE ENGINEER JAVA notified nursing for safety not recommending progression gait, will assist pt to chair as requested. Pt demonstrated holding breath during mobility, reported 9/10 pain, just received Tylenol when arrived. Number of IT SENIOR SOFTWARE ENGINEER JAVA Visits 1 Physical Therapy Visit Comments Patient Comments agreeable to do PT Patient Goals return home with to assist him. Therapy Pain Assessment Pain When Pain Assessed During Mobility Pain Present Pain Present Pain Reported Location Right Knee Intensity 4 Scale Used 4/10 at rest, 9/10 with mobility Description Acute,With Movement Pain Behaviors Calling Out,Facial Grimacing, Holding Area,Moaning, Restlessness,Wincing Pain Management Techniques Apply Cold,Distraction, Elevation,Modification of Treatment,Re-positioning, Timing of Activity with Medications M4 PT-IP Mobility and Gait Start: 05/17/22 17:52 Freq: NEEDED Status: Discharge Protocol: Document 05/18/22 10:20 SP (Rec: 05/18/22 18:40 SP [id number]) PT-Bed Mobility Assessment Supine to Sit Supine to Sit Minimal Assistance,1 Person Assistance,Head of Bed Elevated,Bedrails Scooting Scooting to Edge of Bed Contact Guard Assistance PT-Transfer Assessment Sit to and From Stand Sit to and from Stand Minimal Assistance,Moderate Assistance,1 Person Assistance ,Use of Upper Extremities Equipment Transfer Assistive Device Gait Belt,Front Wheeled Walker Orthotic/Prosthetic Devices or Brace: No Transfers Transfer Destination Chair Transfer Technique Stand Step Pivot Transfer Ability Level of Assist Minimal Assistance,1 Person Assistance,Use of Upper Extremities Comments Mobility Comments Pt completed Elevated supine> sit Min A x1 w/ bed rails and pulling from therapist hand, scoot to EOB CGA. Noted pt holding breath and reddened face, Mod cuing for slow normal breath, BP hypertensive during mobility, see vitals above, notified nursing vitals taken and vital concerns safety about mobilizing request physician safety feedback. Nursing stated will not notify physician. Pt requested to get up to chair. SIt>stand Min/Mod A heavy push from bed/FWW, SPT w/ FWW to chair Min A little sway self centering. Cues for back up fully w/ FWW and reach back , Min A for slow descent to sit in chair. Discussed unableto progress due to safey with vitals and pt/ agreed. IT SENIOR SOFTWARE ENGINEER JAVA requesting pm tx CGT with including gait, stair mgt if stable. Gait Assessment Gait Gait Assistance Required: Contact Guard Assist,Minimum Assistance,1 Person Assist Distance (Feet) 3 Able to Maintain Weight Bearing Status Yes During Gait Assistive Devices Assistive Device Gait Belt,Front Wheeled Walker Orthotic/Prosthetic Devices or Brace: No Gait Deviations General Gait Pattern Antalgic,Decreased Stride Length,Decreased Feet Clearance,Step-to Gait Factors Limiting Gait Function Factors Limiting Gait Function Decreased Activity Tolerance, Decreased Strength,Difficulty Following Directions,Limited Range of Motion,Pain,Poor Balance,Poor Safety Awareness, Respiratory Distress Comments Gait Comments stand step pivot bed>chair. Stair Climbing Assessment Comments Stair Climbing Comments Unable at this time, will need complete 2 steps H HR for safety to return home enterance. PT-Balance Assessment Sitting Balance and Reactions Static Sitting Balance Ability Normal Dynamic Sitting Balance Ability Good Standing Balance and Reactions Static Standing Balance Ability Fair Dynamic Standing Balance Ability Fair Device Used FWW M5 PT-IP Objective Assessments Start: 05/17/22 17:52 Freq: NEEDED Status: Discharge Protocol: Document 05/17/22 16:35 AB (Rec: 05/17/22 18:03 AB [id number]) Orientation Orientation/Cognition Level of Alertness Alert Orientation Name,Place,Situation Language Function Ability No Deficits Noted Safety Awareness Understands Safety Issues Memory Description No Deficits Noted Gross Range of Motion Lower Extremity ROM Impairments R knee flexion: ~70 deg Strength Lower Extremity Strength Assessment Right Impaired Hip 4/5 Knee 4-/5 Sensation Assessment Sensation Gross Sensation WNL Muscle Tone Muscle Tone WNL Yes M6 PT-IP Treatment Start: 05/17/22 17:52 Freq: NEEDED Status: Discharge Protocol: Document 05/18/22 10:20 SP (Rec: 05/18/22 18:40 SP [id number]) Physical Therapy Treatment Exercises Exercises Ankle Pumps,Gluteal Sets,Quad Sets,Heel Slides,Short Arc Quads,Seated Knee Flexion/ Extension Knee ROM Measurement 70 deg AAROM w/ Strap on foot and therapist/ suppor Education Education Provided Precautions,Weight Bearing Status,Post-Op Packet,Safety Other Treatments Other Treatment Performed Education: when get home, walk every hour and post op ex 3x /day for assist circulation and strength, allowed up to 90 deg knee flexion but gentle and not over do, assist strap on foot and assist if needed and comfort. Elevate and ice for edema mgt and pain . No pillow under knee to allow extension ROM. M7 PT-IP Assessment and Plan Start: 05/17/22 17:52 Freq: NEEDED Status: Discharge Protocol: Document 05/18/22 10:20 SP (Rec: 05/18/22 18:40 SP [id number]) PT Summary Assessment and Plan Potential Rehabilitation Potential Fair Status of Condition at Evaluation Evolving Summary Impairments Pain,ROM,Strength,Balance, Coordination,Sensation,Tone, Cognition,Bed Mobility, Transfers,Gait,Activity Tolerance Progress Towards Goals Slow Progress due to Pain,Slow Progress due to Medical Issues,Slow Progress due to Activity Tolerance Assessment Summary Pt Min A during bed mobility, Min/Modx1 A STS/SPT to chair w / FWW. Pt hypertensive during mobility, notified nursing concerns with BP 180s/130s and HR 102-137bpm. Pt reported increased pain 4/10>9/10 during mobility R knee. IT SENIOR SOFTWARE ENGINEER JAVA requesting pm tx for safety unable to progress at this time. Continue to recommend home with wifeand outpt therapy if vitals improve and able progress gait and stair mgt pm tx. WIll continue to assess progress. Goals Bed Mobility Goal Standby Assistance Transfer Goal Standby Assistance,Front Wheeled Walker Gait Goal Standby Assistance,Front Wheel Walker Gait Distance 150 Other Goals up/down 2 steps L rail + SPC SBA Days to Meet Goals 5 Frequency of Treatment Frequency Of Treatment Twice a Day Treatment Plan Physical Therapy Treatment Plan Bed Mobility Training,Transfer Training,Gait Training, Therapeutic Exercise,Balance Retraining,Post Op Education, Discharge Planning,Hot or Cold Pack,Neuromuscular Re-ed, Coordination Retraining,Manual Therapy Other Recommendations and Next Treatment check vitals, bed mob, gait Focus further distance, stair mgt L HR and SPC on R if safe and able. CGT with in pm. Weight Bearing Status Weight Bearing Status Weight Bear as Tolerated Allowed Weight Bearing Amount (enter % RLE WBAT or #) (%) Recommendations To Nursing Amount of Assist Needed 1 Person Assist Discharge Recommendations PT Discharge Recommendations Home with Assistance,Home with 24/ Assist Available, Outpatient PT Transportation Needs at Discharge Private Vehicle
--- NOTE | 2022-05-18 11:17 | PC.NURSE ---
PT got the pt up to the side up the bed and up to the chair. The pt became asymtomatic of HTN with BP of 178/117 and HR of 107. Provider Roman made aware of the situation and Roman is still OK with the pt discharge home once PT clears the pt completely.
--- NOTE | 2022-05-18 11:27 | CM.DANOTE ---
DCP: Case received, EMR reviewed and met with patient. Patient's spouse, Judy, was at bedside. Introduced self and role. Was able to obtain information regarding patient's baseline activity status prior to his surgery. DCP assessment completed with information currently available. Patient is a 77 year old male who admitted yesterday morning to the care of the orthopedic team. PCP: Dr. Evans. Payer: confirmed: Medicare/[employer]. Patient came to the hospital via private vehicle for a surgical procedure. Patient had a right total knee replacement. Patient has history of right knee osteoarthritis. Met with patient and spouse in the room. Patient is alert and oriented, he was sitting up in bed. Both he and spouse reside on [place]. He is independent at his baseline, he does have a cane for home use, and has been driving. P: Patient has discharge orders, but P.T. indicated that blood pressure has been elevated. They will work with him again this pm, and go over stairs as well. Jeri Villafana RN/Fun House Operator Discharge Planning/Care Management CM Discharge Assessment Start: 05/18/22 11:25 Freq: Status: Active Protocol: Document 05/18/22 11:25 (Rec: 05/18/22 11:27 [id number]) Discharge Planning Assessment Assigned Customs Compliance Analyst Jeri Villafana RN/Fun House Operator Advance Directives? Yes Advance Directives on File No History Provided By Patient,Medical Record Prior Living Arrangements House Household Members spouse Type of transporation used prior to Drives own vehicle admit Independent with ADL's Yes Is patient alert and oriented? Yes Caregiver for Another No DME Already Rented / Owned Cane Patient/Family Preference OP PT Therapy Barriers to Discharge No Comment Patient was having some increased BP. P.T. will attempt to work with him again this pm Discharge Plan Home Referrals Initiated None needed Whiteboard Updated in Patient Room with Yes name and ext. # of Customs Compliance Analyst Review Status In Process Next Review Type Continued Stay Review Pre-Anesthesia Assessment Start: 05/08/22 13:55 Freq: Status: Complete Protocol: Document 05/09/22 07:52 CAB (Rec: 05/08/22 14:52 CAB [id number]) Pre-Anesthesia Assessment Preferred Name Fons Patient Information Reviewed Via Phone Assessment Assessment Completed With Patient Diagnostic Results BMP/CMP,CBC,EKG Comment Labs/ECG @ 04/27/22, COVID screen @ [facility] 05/15/22 [facility] Primary Care Provider Michelle Evans Seen Specialist in Last 12 Months Yes Specialist Seen Furnace Caretaker,Flow Match Sofa Cutter, Orthopedist Comment Nephrology/Dr. Galaviz visit scanned Primary Language Bulgarian Preferred Language Bulgarian Soft Sugar Supervisor Required No Comment Fluent in Dominican Height 6 ft 3 in Weight 245 lb Body Mass Index (BMI) 30.6 Hearing Ability Normal Visual Assist Magnifying Glass Dentition Type Teeth, Natural Present Barriers to Learning None Hx Anesthesia Reactions No Hx Family Anesthesia Reaction No Hx Malignant Hyperthermia No Hx Blood Transfusions No Anesthesia Review Requested Yes: PAC courtesy re: Medical history alcohol intake former Alcohol Intake Frequency Other: Quit 2007 Smoking Status Former smoker Tobacco type cigarettes how long ago did patient quit smoking Substance Use Type does not use Pain Present Pain Reported Musculoskeletal Symptoms Abnormal Gait,Difficulty Walking,Joint Pain History of Falling (Recent or History of No ) Patient is completely paralyzed or No completely immobile Prosthesis or Orthotic Device Cane Mental Status Oriented to own ability Is patient on oxygen? No Does patient have ALCALA/SOB No Hx Sleep Apnea Yes: BiPAP CPAP/BIPAP use prescribed and used routinely Will Bring CPAP/BIPAP DOS Yes Currently Taking a Beta [place] Yes: Metoprolol Can You Climb a Flight of Stairs Without No SOB Hx Chest Pain Yes: Prior to CABG x 2 Hx SOB No Hx Syncope or Dizziness No Anti-Coagulant Therapy Yes: Eliquis-hold 3 days prior per Cardiology-he will check if to hold ASA Has a Furnace Caretaker Yes: [facility] No Hx Pacemaker/ICD No Pacemaker Rep Required? No Comment Cardiac records scanned Diet Type At Home Regular Dysphagia No Gastrointestinal Symptoms Reflux Bladder Pattern Urgency Urinary Catheter Present No Hx Urinary Self Catheterization No Diabetes No Presence of External or Internal Medical Yes: CABG, cardiac stent, Devices bilat eye IOLs, BiPAP Have you had any close contact with No someone diagnosed with COVID-19? Received a COVID vaccine? Yes Received all doses? Yes Marital Status Lives With spouse Current Living Arrangements House Number of Floors (Floors) One Floor Does the Patient Have Assistance After Yes Surgery Patient Discharge Plan Description Return Home Comment Pt advised 1 night length of stay per surgeon Additional comment Lives [facility] Feels Safe in Current Environment Yes Been Physically Hurt or Threatened By a No Person in Current Environment Do you have thoughts of harming yourself None or others? Are you currently considering suicide? No Do you have a plan to hurt yourself or No Plan others? Do You Have Any Spiritual Beliefs That No May Affect Your HC Choices? Do You Have Any Cultural Practices That No May Affect Your HC Choices? Comment Church Who Can We Speak to About Patient's Care Family, friends Identifying Code for Release of Patient Declines to issue Information Health Care Proxy/Next of Kin Judy () Health Care Proxy Emergency Contact Name Helga Mtz (daughter) Emergency Contact Advance Directives? Yes Advance Directives on File No Requested Patient Bring Advanced Yes Directives DOS Power of Appointment Manager No Power of Appointment Manager Name Judy () Power of Appointment Manager PAC Instructions Bring CPAP/BIPAP,Durable medical equipment,Medications to take/avoid,Nasal antibiotic ,No ETOH/petroleum product on skin DOS,NPO,Pre-surgical wash ,Sensory aids,Sturdy shoes/ comfortable clothes,Do not bring valuables and remove jewelry
--- NOTE | 2022-05-18 14:20 | PT.IPTN ---
Current Diagnoses Unilateral primary osteoarthritis, right knee (05/17/22) Surgery Performed Operation Date: 05/17/22 10:00 Actual Procedures p Total Knee Arthroplasty(Right) - Alhaji Farfan MD Physical Therapy Treatment Note M2 PT-IP Current Condition Start: 05/17/22 17:52 Freq: NEEDED Status: Discharge Protocol: Document 05/18/22 13:45 SP (Rec: 05/18/22 19:04 SP [id number]) Physical Therapy Current Condition Current Condition Evaluation Date 05/17/22 Treatment Diagnosis s/p R TKA; difficulty in walking Onset Date 05/17/22 M3 PT-IP Subjective Start: 05/17/22 17:52 Freq: NEEDED Status: Discharge Protocol: Document 05/18/22 13:45 SP (Rec: 05/18/22 19:04 SP [id number]) Subjective Physical Therapy Visit Type Type Treatment Note Visit Start Time 13:45 Visit Stop Time 14:20 Total Visit Minutes 35 Notes Vitals taken: seated in chair: BP 150/89 HR 104 post mobility: BP 174/101 HR 125 complete CGT including don gait belt pre stand, CGA/ clse SBA during mobiltiy gait and stair mgt. Number of WRAPPING MACHINE TENDER Visits 2 Physical Therapy Visit Comments Patient Comments Pt agreeable working with PT, states feeling better and in less pain, especially if slow eccentrically straight knee when sitting. Patient Goals return home with to assist him, already set up with outpt PT next week. Therapy Pain Assessment Location Right Knee Intensity 4 Scale Used with mobility Description Aching,Tender,With Movement Pain Behaviors Facial Grimacing Pain Management Techniques Distraction,Re-positioning, Timing of Activity with Medications M4 PT-IP Mobility and Gait Start: 05/17/22 17:52 Freq: NEEDED Status: Discharge Protocol: Document 05/18/22 13:45 SP (Rec: 05/18/22 19:04 SP [id number]) PT-Transfer Assessment Sit to and From Stand Sit to and from Stand Contact Guard Assistance,Use of Upper Extremities Equipment Transfer Assistive Device Gait Belt,Front Wheeled Walker Orthotic/Prosthetic Devices or Brace: No Transfers Transfer Destination Chair Transfer Technique pt ambulated using FWW Transfer Ability Level of Assist Contact Guard Assistance,Use of Upper Extremities Comments Mobility Comments complete don gait belt on pt, CGA STS w/ pt using fWW, occasional cues for hand placement push from chair arms / reach back sit. Progressed gait further into hallway down to stairs 120 ft, complete 3 stairs L HR/ R SPC CGA then back to room, w/c follow for safety but not needed. Pt went into bathroom SBA via complete brief mgt, cued slow descent and used grab bar on R and FWW self support. Pt STS sBA, brief mgt, gait to sink SBA w/ fWW then returned to chair additional total when returned to room 45 ft w/ FWW SBA. sBA slow sit in chair. WRAPPING MACHINE TENDER assessed vitals and note increase and continues to be hypertensive but pt reported felt fine just tired and pain only 4/10. WRAPPING MACHINE TENDER notified nursing BPs with mobilty and reported mobility improved and ableto return home when medically cleared with to assist him. Is set up for outpt PT. Gait Assessment Gait Gait Assistance Required: Standby Assistance,Contact Guard Assist Distance (Feet) 240 Able to Maintain Weight Bearing Status Yes During Gait Assistive Devices Assistive Device Gait Belt,Front Wheeled Walker Orthotic/Prosthetic Devices or Brace: No Gait Deviations General Gait Pattern Decreased Stride Length, Decreased Feet Clearance, Flexed Trunk Factors Limiting Gait Function Factors Limiting Gait Function Decreased Activity Tolerance, Decreased Strength,Limited Range of Motion,Pain Comments Gait Comments Occaional cues for upright posture and little closer to mid FWW in hallway, good knee flexion and heel toe gait on R demonstrated without cues needed. Stair Climbing Assessment Evaluation Level of Assist On Stairs Contact Guard Assistance,1 Person Assistance Devices Stair Climbing Assistive Devices Straight Cane,Left Railing Technique/Endurance Stair Climbing Direction Ascend and Descend Stair Climbing Technique Step to Step Number of Steps Climbed 3 Stair Climbing Set # Repetitions (reps) 1 Comments Stair Climbing Comments Step to patterning ascend/ descend CGA for safey, stable via , cue x1 for proper patterning and good carryover demonstration. PT-Balance Assessment Sitting Balance and Reactions Static Sitting Balance Ability Normal Dynamic Sitting Balance Ability Normal Standing Balance and Reactions Static Standing Balance Ability Good Dynamic Standing Balance Ability Good Device Used FWW M5 PT-IP Objective Assessments Start: 05/17/22 17:52 Freq: NEEDED Status: Discharge Protocol: Document 05/17/22 16:35 AB (Rec: 05/17/22 18:03 AB [id number]) Orientation Orientation/Cognition Level of Alertness Alert Orientation Name,Place,Situation Language Function Ability No Deficits Noted Safety Awareness Understands Safety Issues Memory Description No Deficits Noted Gross Range of Motion Lower Extremity ROM Impairments R knee flexion: ~70 deg Strength Lower Extremity Strength Assessment Right Impaired Hip 4/5 Knee 4-/5 Sensation Assessment Sensation Gross Sensation WNL Muscle Tone Muscle Tone WNL Yes M6 PT-IP Treatment Start: 05/17/22 17:52 Freq: NEEDED Status: Discharge Protocol: Document 05/18/22 13:45 SP (Rec: 05/18/22 19:04 SP [id number]) Physical Therapy Treatment Exercises Exercises Ankle Pumps,Seated Knee Flexion/Extension Knee ROM Measurement approx 70-80 deg seated in chair R knee Education Education Provided Precautions,Weight Bearing Status,Safety Other Treatments Other Treatment Performed Education review: when get home, walk every hour and post op ex 3x/day for assist circulation and strength, allowed up to 90 deg knee flexion but gentle and not over do, assist strap on foot and assist if needed and comfort. Elevate and ice for edema mgt and pain. No pillow under knee to allow extension ROM. M7 PT-IP Assessment and Plan Start: 05/17/22 17:52 Freq: NEEDED Status: Discharge Protocol: Document 05/18/22 13:45 SP (Rec: 05/18/22 19:04 SP [id number]) PT Summary Assessment and Plan Potential Rehabilitation Potential Good Status of Condition at Evaluation Evolving Summary Impairments Pain,ROM,Strength,Balance, Coordination,Sensation,Tone, Cognition,Bed Mobility, Transfers,Gait,Activity Tolerance Progress Towards Goals Progressing Toward Goals,Slow Progress due to Pain,Slow Progress due to Medical Issues ,Slow Progress due to Activity Tolerance Assessment Summary Pt improved decrease assist required, stated will probably sleep in recliner for now. CG / SBA w/ FWW during mobilty, complete 240 ft, 45 ft w/ FWW, completed 3 steps cGA. Pt demonstrated hypertension end tx with mobility, notified nursing.Recommending home with when medically cleared, outpt therapy next week already set up. Goals Bed Mobility Goal Standby Assistance Transfer Goal Standby Assistance,Front Wheeled Walker Gait Goal Standby Assistance,Front Wheel Walker Gait Distance 150 Other Goals up/down 2 steps L rail + SPC SBA Days to Meet Goals 5 Frequency of Treatment Frequency Of Treatment Twice a Day Treatment Plan Physical Therapy Treatment Plan Bed Mobility Training,Transfer Training,Gait Training, Therapeutic Exercise,Balance Retraining,Post Op Education, Discharge Planning,Hot or Cold Pack,Neuromuscular Re-ed, Coordination Retraining,Manual Therapy Other Recommendations and Next Treatment check vitals, ROM, post op RLE Focus ex, gait FWw then prgress LRAD when able. Weight Bearing Status Weight Bearing Status Weight Bear as Tolerated Allowed Weight Bearing Amount (enter % RLE WBAT or #) (%) Recommendations To Nursing Amount of Assist Needed Standby Assistance,1 Person Assist Discharge Recommendations PT Discharge Recommendations Home with Assistance,Home with 24/7 Assist Available, Outpatient PT Transportation Needs at Discharge Private Vehicle
== END 2022-05-18 15:02 | disposition home or self-care (01) ==
LOC: OR 05-19 09:07 → AC 05-19 09:07
PROVIDERS: Admitting Provider Orthopaedic Surgery; Family Provider Family Medicine; PCP Family Medicine; Referring Provider Orthopaedic Surgery; Visit Provider Orthopaedic Surgery
PROC: 0SRC0JZ Replacement of Right Knee Joint with Synthetic Substitute, Open Approach (ICD-10-PCS; CPT 27447; principal; 2022-05-17 10:00)
DX: M17.11 Unilateral primary osteoarthritis, right knee (principal); D50.0 Iron deficiency anemia secondary to blood loss (chronic); I48.91 Unspecified atrial fibrillation; I25.10 Atherosclerotic heart disease of native coronary artery without angina pectoris; N18.9 Chronic kidney disease, unspecified
CPT/HCPCS: 27447; 73560; 85014; 85018; 97110; 97116; 97162; 97530; C1776; G0378; C1713; C9290; J0171; J0690; J1100; J2250; J2270; J2405; J2704; J3010

== ENCOUNTER → 2024-07-08 08:41 | Outpatient (CLI) | payer MEDICARE, SELFPAY ==
[2022-05-17 13:26] VITALS: BMI 32.3
--- NOTE | 2024-07-08 08:43 | DI.MG.S_ITS ---
MALE BILATERAL DIGITAL DIAGNOSTIC MAMMOGRAM 3D/2D: 07/08/2024 CLINICAL: Righr breast mass. Baseline. No prior exams were available for comparison. The breasts are almost entirely fatty (category a/<25% glandular tissue). There is gynecomastia in both breasts. There is a 3.5 cm oval high density mass with a circumscribed margin and grouped calcifications in the right breast central to the nipple in the retroareolar region. This correlates as palpated. No other significant masses, calcifications, or other findings are seen in either breast. IMPRESSION: INCOMPLETE: NEED ADDITIONAL IMAGING EVALUATION The 3.5 cm oval high density mass in the right breast is indeterminate. An ultrasound is recommended. This exam was interpreted at Station ID: [id number]. NOTE: For mammograms, a report in lay terms will be sent to the patient. Approximately 15% of breast malignancies will not be visualized mammographically. In the management of a palpable breast mass, a negative mammogram must not discourage biopsy of a clinically suspicious lesion. Electronically Signed By: Adrian braun/:07/09/2024 11:52:50 Entry: og - 07/10/2024 10:45:25 letter sent: Additional Imaging Needed ACR BI-RADS Category 0: Incomplete: Need Additional Imaging Evaluation
--- NOTE | 2024-07-08 08:43 | DI.US.S_ITS ---
LIMITED ULTRASOUND OF RIGHT BREAST AND AXILLA: 07/08/2024 CLINICAL: Palpable right breast lump. Comparison is made to exam dated: 07/08/2024 mammogram - [facility]. Color flow and real-time ultrasound of the right breast retroareolar and axilla regions were performed. Mason scale images of the real-time examination were reviewed. There is a 3.4 cm x 3 cm x 3.9 cm oval complex cystic and solid mass with a circumscribed margin in the right breast at 9 o'clock in the retroareolar region. This oval mass is anechoic and hypoechoic with posterior acoustic enhancement. This correlates as palpated and with mammography findings. Color flow imaging demonstrates that there is vascularity present within the solid components. Two solid components measure approximately 1.7 x 1.0 cm and 1.0 x 0.9 cm in maximum dimensions. No significant abnormalities were seen sonographically in the right axilla. IMPRESSION: SUSPICIOUS The 3.4 cm x 3 cm x 3.9 cm oval complex cystic and solid mass in the right breast is suspicious of malignancy. An ultrasound guided biopsy of the solid component is recommended. The findings and recommendations were discussed with the patient via telephone at the time of the exam. No significant abnormalities were seen sonographically in the right axilla. This exam was interpreted at Station ID: [id number]. Electronically Signed By: Adrian Torrez M.D. ar/:07/09/2024 11:56:45 letter sent: Biopsy Required ACR BI-RADS Category 4: Suspicious
== END ==
PROVIDERS: Family Provider Family Medicine; PCP Family Medicine; Referring Provider Family Medicine; Visit Provider Family Medicine
DX: R92.8 Other abnormal and inconclusive findings on diagnostic imaging of breast (principal); R92.1 Mammographic calcification found on diagnostic imaging of breast; N63.41 Unspecified lump in right breast, subareolar; N62 Hypertrophy of breast; R92.313 Mammographic fatty tissue density, bilateral breasts
CPT/HCPCS: 76642; 77066; G0279

== ENCOUNTER → 2025-02-28 09:01 | Outpatient (CLI) | payer MEDICARE, SELFPAY ==
[2022-05-17 13:26] VITALS: BMI 32.3
--- NOTE | 2025-02-28 09:03 | DI.MRI.S_ITS ---
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 COMPARISON: [facility], CT, CT KIDNEY URETER BLADDER (KUB), 05/30/2021, 12:17. FINDINGS: Image quality: Diagnostic. Adrenal Glands: No adrenal nodules. OTHER: Lung bases: Post median sternotomy. Liver: No solid mass. Gallbladder: Gallstone. Biliary ducts: No biliary dilation. Pancreas: No ductal dilation. Spleen: Size is within normal limits. Kidneys and Ureters: No hydronephrosis. Multiple small T2 and intrinsic T1 hyperintense cysts. Stomach and Bowel: Normal colonic caliber, without significant wall thickening. Diverticulosis. Peritoneum: No abnormal intraperitoneal fluid. No free air. Ventral Wall: No hernia. Abdominal Nodes: No retroperitoneal or mesenteric adenopathy by size criteria. Vessels: Aorta and inferior vena cava are normal in size. Pelvis: No pelvic mass. Bones: No aggressive osseous abnormality. IMPRESSION: 1. No adrenal nodule. 2. No biliary or pancreatic ductal dilatation. Large gallstone. 3. Numerous simple appearing cysts. Multiple intrinsic T1 hyperintense cyst which are likely hemorrhagic/proteinaceous cyst. Dictated by: Kwame Ogden M.D. on 03/03/2025 at 20:19 Approved by: Kwame Ogden M.D. on 03/03/2025 at 20:26
== END ==
PROVIDERS: Family Provider Family Medicine; PCP Family Medicine; Referring Provider Physician Assistant; Visit Provider Physician Assistant
DX: E27.9 Disorder of adrenal gland, unspecified (principal); K80.20 Calculus of gallbladder without cholecystitis without obstruction; N28.1 Cyst of kidney, acquired
CPT/HCPCS: 74181